=== PATIENT | female | born 1950 | race Caucasian/White ===

== ENCOUNTER 2019-08-28 16:01 | Inpatient (IN) ==
[2019-08-28 16:35] LABS: Basophils % 0.4 %; Eosinophils # 0.1 K/mcL (0.0-0.6); Eosinophils % 1.7 %; Hematocrit 29.2 % (35.3-44.9); Hemoglobin 8.6 g/dL (11.5-15.4); Immature Granulocytes % 0.4 % (0-4); Lymphocytes # 1.2 K/mcL (0.6-4.6); Lymphocytes % 22.1 %; Mean Corpuscular HGB Conc 29.5 g/dL (31.6-35.5); Mean Corpuscular Volume 91.5 fL (83.0-100.0); Mean Platelet Volume 9.2 fL (9.4-12.4); Monocytes # 0.6 K/mcL (0.0-1.3); Monocytes % 10.9 %; Neutrophils # 3.4 K/mcL (1.6-8.9); Platelet Count 201 K/mcL (140-400); Red Blood Count 3.19 M/mcL (3.82-4.97); Red Cell Distribution Width 12.9 % (11.5-14.5); Segmented Neutrophils % 64.5 %; White Blood Count 5.3 K/mcL (4.3-11.1)
[2019-08-28 16:49] LABS: INR 1.1; Prothrombin Time 12.1 Seconds (9.4-12.1)
[2019-08-28 16:52] LABS: Activated Partial Thrombo Time 43.8 Seconds (26.0-36.0); Albumin/Globulin Ratio 2.1 (1.1-2.2); Bilirubin,Direct 0.1 mg/dL (0.0-0.2); Bilirubin,Indirect 0.6 mg/dL (0.0-1.0); Bilirubin,Total 0.7 mg/dL (0.3-1.0); Globulin 1.9 g/dL (2.4-3.5); Total Protein 5.9 g/dL (6.4-8.9)
[2019-08-28 16:55] LABS: BUN/Creatinine Ratio 15 (6-26); Blood Urea Nitrogen 16 mg/dL (8-23); Calcium 9.1 mg/dL (8.6-10.3); Carbon Dioxide 24 mEq/L (23-29); Chloride 109 mEq/L (98-107); Glucose 110 mg/dL (70-105); Osmolality,Calculated 294 (280-300); Potassium 4.4 mEq/L (3.5-5.1); Sodium 141 mEq/L (136-145); eGFR For African Americans > 60 (> 60); eGFR For Non-African Americans 50 (> 60)
[2019-08-28] MEDS ORDERED: Naloxone 0.4 MG/ML INJ IVP PRN (17:38)
[2019-08-28] MEDS ORDERED: Ondansetron 4 MG/2 ML VIAL IVP PRN (17:38)
[2019-08-28] MEDS ORDERED: 0.9 % Sodium Chloride 1,000 ML IVC SCH (17:45)
[2019-08-28] MEDS ORDERED: SODIUM CHLORIDE/NAHCO3/KCL/PEG 4,000 ML SOLN.RECON PO ONE (17:45)
[2019-08-28] MEDS: Pantoprazole 40 MG VIAL IVP SCH (18:16)
[2019-08-28] MEDS: Iron Sucrose Complex 250 MG in 0.9 % Sodium Chloride 250 ML IVPB SCH (18:24)
[2019-08-28] MEDS ORDERED: Acetaminophen 325 MG TABLET PO PRN (18:43)
[2019-08-28] MEDS: Acetaminophen 325 MG TABLET PO PRN (19:23)
[2019-08-28] MEDS ORDERED: QUINIDINE GLUCONATE 324 MG PO SCH (19:30)
[2019-08-28] MEDS: carvediloL 6.25 MG TABLET PO SCH (22:00)
[2019-08-28 22:38] LABS: Hematocrit 26.2 % (35.3-44.9); Hemoglobin 7.7 g/dL (11.5-15.4)
[2019-08-29 02:47] LABS: Hematocrit 24.3 % (35.3-44.9); Hemoglobin 7.2 g/dL (11.5-15.4); Mean Corpuscular HGB Conc 29.6 g/dL (31.6-35.5); Mean Platelet Volume 9.6 fL (9.4-12.4); Platelet Count 180 K/mcL (140-400); Red Blood Count 2.67 M/mcL (3.82-4.97); Red Cell Distribution Width 12.9 % (11.5-14.5); White Blood Count 4.3 K/mcL (4.3-11.1)
[2019-08-29 02:48] LABS: INR 1.2; Prothrombin Time 13.2 Seconds (9.4-12.1)
[2019-08-29 03:02] LABS: BUN/Creatinine Ratio 16 (6-26); Blood Urea Nitrogen 16 mg/dL (8-23); Calcium 8.4 mg/dL (8.6-10.3); Carbon Dioxide 26 mEq/L (23-29); Chloride 112 mEq/L (98-107); Glucose 76 mg/dL (70-105); Osmolality,Calculated 294 (280-300); Potassium 4.5 mEq/L (3.5-5.1); Sodium 142 mEq/L (136-145); eGFR For African Americans > 60 (> 60); eGFR For Non-African Americans 54 (> 60)
[2019-08-29] MEDS: Pantoprazole 40 MG VIAL IVP SCH ×2 (05:54→17:07)
[2019-08-29] MEDS: Furosemide 20 MG TABLET PO SCH (07:25)
[2019-08-29] MEDS: carvediloL 6.25 MG TABLET PO SCH ×2 (07:25→20:17)
[2019-08-29] MEDS: QUINIDINE GLUCONATE 324 MG PO SCH ×3 (07:29→20:19)
[2019-08-29] MEDS ORDERED: Lidocaine -MPF 2% 2 ML VIAL ONE (07:32)
[2019-08-29] MEDS ORDERED: Ondansetron 4 MG/2 ML VIAL ONE (07:34)
[2019-08-29] MEDS: Iron Sucrose Complex 250 MG in 0.9 % Sodium Chloride 250 ML IVPB SCH (07:43)
[2019-08-29] MEDS: 0.9 % Sodium Chloride 500 ML IVC SCH ×2 (11:11→15:42)
[2019-08-29 11:45] LABS: Hematocrit 27.8 % (35.3-44.9)
[2019-08-29 19:49] LABS: Hemoglobin 8.1 g/dL (11.5-15.4)
[2019-08-29] MEDS: Acetaminophen 325 MG TABLET PO PRN (20:18)
[2019-08-30] MEDS: 0.9 % Sodium Chloride 500 ML IVC SCH ×2 (04:46→15:56)
[2019-08-30] MEDS: Pantoprazole 40 MG VIAL IVP SCH ×3 (05:21→17:46)
[2019-08-30 05:58] LABS: Basophils % 0.4 %; Eosinophils # 0.1 K/mcL (0.0-0.6); Eosinophils % 2.8 %; Hematocrit 26.5 % (35.3-44.9); Hemoglobin 7.9 g/dL (11.5-15.4); Immature Granulocytes % 0.2 % (0-4); Lymphocytes # 1.1 K/mcL (0.6-4.6); Mean Corpuscular HGB Conc 29.8 g/dL (31.6-35.5); Mean Corpuscular Volume 90.4 fL (83.0-100.0); Mean Platelet Volume 9.4 fL (9.4-12.4); Monocytes # 0.6 K/mcL (0.0-1.3); Monocytes % 12.2 %; Neutrophils # 2.9 K/mcL (1.6-8.9); Platelet Count 174 K/mcL (140-400); Red Blood Count 2.93 M/mcL (3.82-4.97); Segmented Neutrophils % 61.4 %; White Blood Count 4.7 K/mcL (4.3-11.1)
[2019-08-30 06:14] LABS: BUN/Creatinine Ratio 15 (6-26); Blood Urea Nitrogen 15 mg/dL (8-23); Carbon Dioxide 29 mEq/L (23-29); Chloride 108 mEq/L (98-107); Glucose 90 mg/dL (70-105); Osmolality,Calculated 294 (280-300); Sodium 142 mEq/L (136-145); eGFR For African Americans > 60 (> 60); eGFR For Non-African Americans 55 (> 60)
[2019-08-30] MEDS: carvediloL 6.25 MG TABLET PO SCH ×2 (08:17→20:33)
[2019-08-30] MEDS: Furosemide 20 MG TABLET PO SCH (08:17)
[2019-08-30] MEDS: QUINIDINE GLUCONATE 324 MG PO SCH ×3 (08:17→20:34)
[2019-08-30] MEDS: Iron Sucrose Complex 250 MG in 0.9 % Sodium Chloride 250 ML IVPB SCH (08:21)
[2019-08-30] MEDS ORDERED: 0.9 % Sodium Chloride 250 ML ONE (14:58)
[2019-08-30] MEDS: Acetaminophen 325 MG TABLET PO PRN (22:00)
[2019-08-31 05:29] LABS: Basophils % 0.6 %; Eosinophils # 0.1 K/mcL (0.0-0.6); Eosinophils % 2.9 %; Hematocrit 29.5 % (35.3-44.9); Hemoglobin 8.7 g/dL (11.5-15.4); Immature Granulocytes % 0.6 % (0-4); Lymphocytes # 1.4 K/mcL (0.6-4.6); Lymphocytes % 28.5 %; Mean Corpuscular HGB Conc 29.5 g/dL (31.6-35.5); Mean Corpuscular Hemoglobin 26.4 pg (28.0-33.3); Mean Corpuscular Volume 89.4 fL (83.0-100.0); Mean Platelet Volume 9.5 fL (9.4-12.4); Monocytes # 0.7 K/mcL (0.0-1.3); Neutrophils # 2.6 K/mcL (1.6-8.9); Platelet Count 179 K/mcL (140-400); Red Cell Distribution Width 13.5 % (11.5-14.5); Segmented Neutrophils % 53.4 %; White Blood Count 4.9 K/mcL (4.3-11.1)
[2019-08-31] MEDS: 0.9 % Sodium Chloride 500 ML IVC SCH (05:41)
[2019-08-31] MEDS: Pantoprazole 40 MG VIAL IVP SCH (05:42)
[2019-08-31] MEDS: Furosemide 20 MG TABLET PO SCH (08:30)
[2019-08-31] MEDS: carvediloL 6.25 MG TABLET PO SCH (08:30)
[2019-08-31] MEDS: QUINIDINE GLUCONATE 324 MG PO SCH (08:30)
[2019-08-31] MEDS: Iron Sucrose Complex 250 MG in 0.9 % Sodium Chloride 250 ML IVPB SCH (08:31)
[2019-08-31] MEDS ORDERED: Cyanocobalamin (B-12) 1,000 MCG TABLET PO SCH (09:00)
[2019-08-31 11:19] VITALS: BP 109/66
== END 2019-08-31 12:39 | disposition home or self-care (01) | DRG 812 ==
LOC: 3BNU 16:01 → EMEROOARM 16:01 → SUATTDRO 18:01 → 3BNU 18:54
PROVIDERS: ADMIT Family Medicine; ATTEND Nurse Practitioner

== ENCOUNTER 2019-12-25 14:47 | Observation (INO) ==
[2019-12-25] MEDS ORDERED: Isovue-370 500 ML BOTTLE IVP ONE (15:50)
[2019-12-25] MEDS ORDERED: 0.9 % Sodium Chloride 1,000 ML IV ONE (15:51)
[2019-12-25] MEDS ORDERED: *HR* FentaNYL (PF) 100 MCG/2 ML VIAL IVP ONE (15:51)
[2019-12-25] MEDS ORDERED: cefTRIAXone 1,000 MG in 0.9 % Sodium Chloride Mini Bag 100 ML IVPB ONE ×2 (15:51→17:10)
[2019-12-25 16:16] LABS: Basophils % 0.4 %; Eosinophils # 0.1 K/mcL (0.0-0.6); Eosinophils % 1.8 %; Hematocrit 37.3 % (35.3-44.9); Hemoglobin 11.8 g/dL (11.5-15.4); Immature Granulocytes % 0.2 % (0-4); Lymphocytes # 0.9 K/mcL (0.6-4.6); Lymphocytes % 18.3 %; Mean Corpuscular HGB Conc 31.6 g/dL (31.6-35.5); Mean Corpuscular Hemoglobin 29.6 pg (28.0-33.3); Mean Corpuscular Volume 93.7 fL (83.0-100.0); Mean Platelet Volume 9.9 fL (9.4-12.4); Monocytes # 0.6 K/mcL (0.0-1.3); Monocytes % 11.8 %; Neutrophils # 3.4 K/mcL (1.6-8.9); Platelet Count 137 K/mcL (140-400); Red Blood Count 3.98 M/mcL (3.82-4.97); Red Cell Distribution Width 12.8 % (11.5-14.5); Segmented Neutrophils % 67.5 %; White Blood Count 5.1 K/mcL (4.3-11.1)
[2019-12-25 16:39] LABS: Bilirubin,Urine Moderate (Negative); Blood,Urine Moderate (Negative); Clarity,Urine Ex.Turbid (Clear); Color,Urine Dark-Orange (Yellow); Glucose,Urine (UA) Normal (Normal); Ketones,Urine Negative (Negative); Leukocyte Esterase,Urine Negative (Negative); Nitrite,Urine Positive (Negative); Protein,Urine 200 mg/dL (Neg-Trace); Specific Gravity,Urine 1.028 (1.010-1.025)
[2019-12-25 16:43] LABS: Bacteria,Urine Many per hpf (None-Few); RBC,Urine 50-100 per hpf (0-3); Squamous Epithelial Cell,Urine Few per hpf (None-Few); WBC,Urine 0-3 per hpf (0-3)
[2019-12-25 16:44] LABS: Calcium 9.6 mg/dL (8.6-10.3); Potassium 4.8 mEq/L (3.5-5.1)
[2019-12-25 18:38] LABS: Albumin 4.3 g/dL (3.5-5.7); Albumin/Globulin Ratio 2.3 (1.1-2.2); Bilirubin,Direct 0.4 mg/dL (0.0-0.2); Bilirubin,Indirect 1.5 mg/dL (0.0-1.0); Bilirubin,Total 1.9 mg/dL (0.3-1.0); Globulin 1.9 g/dL (2.4-3.5); Total Protein 6.2 g/dL (6.4-8.9)
[2019-12-25] MEDS ORDERED: Ketorolac 15 MG/ML VIAL IVP PRN (20:41)
[2019-12-25] MEDS ORDERED: Naloxone 0.4 MG/ML INJ IVP PRN (20:41)
[2019-12-25] MEDS ORDERED: *HR* Promethazine 25 MG/ML VIAL IVP PRN (20:41)
[2019-12-25] MEDS ORDERED: 0.9 % Sodium Chloride 1,000 ML IVC SCH (20:45)
[2019-12-25] MEDS ORDERED: *HR* OxyCODONE/APAP 5/325 TABLET PO PRN (21:46)
[2019-12-26] MEDS: QUINIDINE GLUCONATE 324 MG PO SCH ×5 (02:56→23:18)
[2019-12-26 04:59] LABS: Basophils % 0.4 %; Eosinophils # 0.1 K/mcL (0.0-0.6); Eosinophils % 2.3 %; Hematocrit 33.5 % (35.3-44.9); Hemoglobin 10.4 g/dL (11.5-15.4); Immature Granulocytes % 0.4 % (0-4); Lymphocytes # 1.3 K/mcL (0.6-4.6); Lymphocytes % 27.9 %; Mean Corpuscular Hemoglobin 30.5 pg (28.0-33.3); Mean Corpuscular Volume 98.2 fL (83.0-100.0); Monocytes # 0.6 K/mcL (0.0-1.3); Monocytes % 12.7 %; Neutrophils # 2.7 K/mcL (1.6-8.9); Platelet Count 117 K/mcL (140-400); Red Blood Count 3.41 M/mcL (3.82-4.97); Red Cell Distribution Width 12.8 % (11.5-14.5); Segmented Neutrophils % 56.3 %; White Blood Count 4.7 K/mcL (4.3-11.1)
[2019-12-26 05:03] LABS: INR 1.4; Prothrombin Time 15.8 Seconds (9.4-12.1)
[2019-12-26 05:23] LABS: Alanine Aminotransferase 15 Units/L (7-52); Albumin 3.7 g/dL (3.5-5.7); Albumin/Globulin Ratio 2.3 (1.1-2.2); Alkaline Phosphatase 71 Units/L (34-104); Aspartate Amino Transferase 19 Units/L (13-39); BUN/Creatinine Ratio 26 (6-26); Bilirubin,Direct 0.2 mg/dL (0.0-0.2); Bilirubin,Indirect 0.9 mg/dL (0.0-1.0); Bilirubin,Total 1.1 mg/dL (0.3-1.0); Blood Urea Nitrogen 23 mg/dL (8-23); Calcium 8.3 mg/dL (8.6-10.3); Carbon Dioxide 24 mEq/L (23-29); Chloride 110 mEq/L (98-107); Globulin 1.6 g/dL (2.4-3.5); Glucose 86 mg/dL (70-105); Osmolality,Calculated 293 (280-300); Potassium 4.2 mEq/L (3.5-5.1); Sodium 140 mEq/L (136-145); Total Protein 5.3 g/dL (6.4-8.9); eGFR For African Americans > 60 (> 60); eGFR For Non-African Americans > 60 (> 60)
[2019-12-26] MEDS ORDERED: *HR* Heparin 5,000 UNIT/ML VIAL SQ SCH (06:00)
[2019-12-26] MEDS: carvediloL 6.25 MG TABLET PO SCH ×2 (08:25→17:31)
[2019-12-26] MEDS: Sucralfate 1 GM TABLET PO SCH ×4 (08:38→22:26)
[2019-12-26] MEDS: Spironolactone 25 MG TABLET PO SCH (08:38)
[2019-12-26] MEDS: Cyanocobalamin (B-12) 1,000 MCG TABLET PO SCH (08:38)
[2019-12-26] MEDS: Apixaban 5 MG TABLET PO SCH ×2 (08:38→21:09)
[2019-12-26] MEDS: Magic Mouthwash 10 ML UD Cup PO SCH ×2 (12:34→17:30)
[2019-12-26] MEDS ORDERED: cefTRIAXone 2,000 MG in Water for inj. (sterile) 20 ML IVP SCH (17:00)
[2019-12-27 01:46] LABS: Alanine Aminotransferase 17 Units/L (7-52); Albumin 3.5 g/dL (3.5-5.7); Albumin/Globulin Ratio 1.9 (1.1-2.2); Alkaline Phosphatase 76 Units/L (34-104); Aspartate Amino Transferase 20 Units/L (13-39); BUN/Creatinine Ratio 24 (6-26); Bilirubin,Total 0.8 mg/dL (0.3-1.0); Blood Urea Nitrogen 20 mg/dL (8-23); Calcium 8.9 mg/dL (8.6-10.3); Carbon Dioxide 27 mEq/L (23-29); Chloride 108 mEq/L (98-107); Globulin 1.8 g/dL (2.4-3.5); Glucose 76 mg/dL (70-105); Osmolality,Calculated 293 (280-300); Potassium 4.4 mEq/L (3.5-5.1); Sodium 141 mEq/L (136-145); Total Protein 5.3 g/dL (6.4-8.9); eGFR For African Americans > 60 (> 60); eGFR For Non-African Americans > 60 (> 60)
[2019-12-27] MEDS: QUINIDINE GLUCONATE 324 MG PO SCH (05:18)
[2019-12-27] MEDS: Spironolactone 25 MG TABLET PO SCH (08:07)
[2019-12-27] MEDS: Apixaban 5 MG TABLET PO SCH (08:07)
[2019-12-27] MEDS: Magic Mouthwash 10 ML UD Cup PO SCH (08:07)
[2019-12-27] MEDS: carvediloL 6.25 MG TABLET PO SCH (08:08)
[2019-12-27] MEDS: Sucralfate 1 GM TABLET PO SCH (08:08)
[2019-12-27] MEDS: Cyanocobalamin (B-12) 1,000 MCG TABLET PO SCH (08:08)
[2019-12-27 11:16] VITALS: BP 119/70
== END 2019-12-27 13:39 | disposition home or self-care (01) ==
LOC: EMEROOARM 14:47 → 3BNU 14:47
PROVIDERS: ADMIT Family Medicine; ATTEND Family Medicine